=== PATIENT | male | born 1960 | race Caucasian/White ===

== ENCOUNTER 2024-05-05 12:35 | Outpatient (CLI) | payer MEDICARE, OTHER ==
--- NOTE | 2024-05-05 13:12 | XRAY Report ---
PROCEDURE: Hips w/Pelvis 2-3V BL INDICATIONS: OSTEOARTHRITIS TECHNIQUE: 3 view(s) of the hip were acquired. COMPARISON: None. FINDINGS: Bones: No fractures or dislocations. No suspicious bony lesions. The visualized pelvic ring appear s intact. On the right, there is nonuniform joint space narrowing with osteophytosis. On the left, t here is nonuniform joint space narrowing, osteophytosis, subchondral sclerosis and cystic change with early bony deformity. Soft tissues: No suspicious soft tissue calcifications or masses. IMPRESSION: Severe left and moderate right osteoarthritis. Reviewed by: Lokesh Modi MD on 05/05/2024 1:11 PM PDT Approved by: Lokesh Modi MD on 05/05/2024 1:11 PM PDT Station ID: [id number]
[2024-05-05 17:57] LABS: BASOPHILS # (AUTO) 0.1 10^3/uL (0.0-0.1); BASOPHILS % (AUTO) 1.4 %; EOSINOPHILS # (AUTO) 0.2 10^3/uL (0.0-0.7); EOSINOPHILS % (AUTO) 3.3 %; HCT - HEMATOCRIT 50.4 % (42.0-52.0); HGB - HEMOGLOBIN 16.1 g/dL (14.0-18.0); LYMPHOCYTES % (AUTO) 15.3 %; MEAN CORPUSCULAR HEMOGLOBIN 27.7 pg (27.0-31.0); MEAN CORPUSCULAR HGB CONC 31.9 g/dL (32.0-36.0); MEAN CORPUSCULAR VOLUME 86.7 fL (80.0-94.0); MEAN PLATELET VOLUME 12.8 fL (7.4-11.4); MONOCYTES # (AUTO) 0.5 10^3/uL (0.0-1.0); MONOCYTES % (AUTO) 8.4 %; NEUTROPHILS # (AUTO) 4.6 10^3/uL (1.5-6.6); NEUTROPHILS % (AUTO) 71.3 %; PLT - PLATELET COUNT 215 10^3/uL (130-450); RED BLOOD COUNT 5.81 10^6/uL (4.70-6.10); RED CELL DISTRIBUTION WIDTH 13.1 % (12.0-15.0); WHITE BLOOD COUNT 6.5 x10^3/uL (4.8-10.8)
[2024-05-05 18:16] LABS: ALBUMIN 4.1 g/dL (3.2-5.5); ALBUMIN/GLOBULIN RATIO 1.3 (1.0-2.2); BILIRUBIN,TOTAL 1.3 mg/dL (0.2-1.0); CALCIUM 9.4 mg/dL (8.5-10.3); CREATININE 0.9 mg/dL (0.6-1.3); POTASSIUM 3.6 mmol/L (3.5-4.5); TOTAL PROTEIN 7.3 g/dL (6.4-8.9)
[2024-05-05 18:34] LABS: THYROID STIMULATING HORMONE 1.68 uIU/mL (0.34-5.60)
[2024-05-05 20:58] LABS: ESTIMATED AVERAGE GLUCOSE 286 mg/dL (70-100); HEMOGLOBIN A1c% 11.6 % (4.27-6.07)
== END 2024-05-05 13:48 | disposition home or self-care (01) ==
LOC: DI.N 12:35
PROVIDERS: ATTEND Physician Assistant Medical
DX: Z01.810 Encounter for preprocedural cardiovascular examination (principal); M16.0 Bilateral primary osteoarthritis of hip; I48.91 Unspecified atrial fibrillation; Z79.01 Long term (current) use of anticoagulants
CPT/HCPCS: 36415; 80053; 83036; 84443; 85025